=== PATIENT | female | born 1990 ===

== ENCOUNTER 2016-09-26 20:05 | Emergency (ER) | payer MEDICAID ==
[2016-09-26 20:30] LABS: PH,URINE 6.5 (5.0-8.0); SPECIFIC GRAVITY 1.015 (1.001-1.030); URINE BILIRUBIN NEGATIVE (NEGATIVE); URINE BLOOD TRACE (NEGATIVE); URINE GLUCOSE (UA) NEGATIVE (NEGATIVE); URINE LEUKOCYTE ESTERASE NEGATIVE (NEGATIVE); URINE NITRITE NEGATIVE (NEGATIVE); URINE PROTEIN NEGATIVE (NEGATIVE); URINE UROBILINOGEN NORMAL (0-1 mg/dl)
[2016-09-26 20:34] LABS: URINE APPEARANCE CLEAR; URINE COLOR YELLOW
[2016-09-26 20:35] LABS: HCG,QUALITATIVE URINE NEGATIVE
[2016-09-26 20:53] LABS: URINE RBC 0-1 /hpf
[2016-09-26 20:54] LABS: URINE BACTERIA FEW; URINE WBC 0-1 /hpf
[2016-09-26] MEDS ORDERED: CEPHALEXIN 500 MG CAPSULE ONE (21:08)
[2016-09-28 13:38] LABS: CHLAMYDIA BD Negative (Negative); N.GONORRHOEAE BD Negative (Negative); SOURCE Urine (())
== END 2016-09-26 21:14 | disposition home or self-care (01) ==
LOC: ED 20:05
DX: N39.0 Urinary tract infection, site not specified (principal); R10.30 Lower abdominal pain, unspecified
CPT/HCPCS: 87491; 87591; 81025; 87086; 81001; 99283 ×2; A9270